=== PATIENT | female | born 1990 | race Two or more races ===

== ENCOUNTER 2017-10-20 20:37 | Emergency (ER) | payer OTHER ==
[~2017-10-20] VITALS: Ht 160 cm; Wt 56.8 kg
[2017-10-20] MEDS ORDERED: ALBU8HFA IH (20:51)
[2017-10-20] MEDS ORDERED: ALBUTEROL SULFATE 2.5 MG/0.5 ML NEB SOLUTION NEB ONE (21:30)
[2017-10-20] MEDS ORDERED: ALBUTEROL SULFATE HFA 90 MCG/PUFF 8 GM INHALER IH ONE (21:30)
[2017-10-20] MEDS ORDERED: IPRATROPIUM BROMIDE 0.5 MG/2.5 ML NEB SOLUTION NEB ONE (21:30)
[2017-10-20] MEDS ORDERED: PredniSONE 20 MG TABLET PO ONE (21:30)
[2017-10-20 22:54] VITALS: BP 127/74
== END 2017-10-20 22:57 | disposition home or self-care (01) ==
LOC: EMS 20:38
DX: J45.901 Unspecified asthma with (acute) exacerbation (principal); Z87.891 Personal history of nicotine dependence
CPT/HCPCS: 81025; 94640; 99283; J7512; J7613; J3535

== ENCOUNTER 2017-12-31 22:51 | Emergency (ER) | payer MEDICAID, OTHER ==
[~2017-12-31] VITALS: Ht 160 cm; Wt 59.1 kg
[~2017-12-31 22:51] MED LIST: ALBU8HFA IH
[2017-12-31] MEDS ORDERED: ALBUTEROL SULFATE 2.5 MG/0.5 ML NEB SOLUTION NEB ONE (23:15)
[2017-12-31] MEDS ORDERED: 0.9% SODIUM CHLORIDE 5 ML NEB SOLUTION NEB ONE (23:19)
[2018-01-01] MEDS ORDERED: 0.9% SODIUM CHLORIDE 5 ML NEB SOLUTION NEB ONE (00:26)
[2018-01-01] MEDS ORDERED: IPRATROPIUM BROMIDE 0.5 MG/2.5 ML NEB SOLUTION NEB ONE (00:30)
[2018-01-01] MEDS ORDERED: PredniSONE 20 MG TABLET PO ONE ×2 (00:30→02:45)
[2018-01-01] MEDS ORDERED: ALBUTEROL SULFATE 5 MG/ML 20 ML NEB SOLN [BULK] NEB ONE (00:30)
[2018-01-01] MEDS ORDERED: AZITHROMYCIN 250 MG TABLET PO ONE (02:45)
[2018-01-01] MEDS ORDERED: ALBUTEROL SULFATE HFA 90 MCG/PUFF 8 GM INHALER IH ONE (02:45)
[2018-01-01 03:23] VITALS: BP 130/68
== END 2018-01-01 03:25 | disposition home or self-care (01) ==
LOC: EMS 22:52
DX: J18.9 Pneumonia, unspecified organism (principal); J45.901 Unspecified asthma with (acute) exacerbation; Z87.891 Personal history of nicotine dependence; Z90.49 Acquired absence of other specified parts of digestive tract; Z90.5 Acquired absence of kidney; Z79.899 Other long term (current) drug therapy
CPT/HCPCS: 71046; 81025; 94644; 99285; J7512; J7611; J7613; 94640; J3535

== ENCOUNTER 2018-03-31 00:24 | Emergency (ER) | payer MEDICAID ==
[~2018-03-31] VITALS: Ht 160 cm; Wt 56.8 kg
[2018-03-31] MEDS ORDERED: ADV500 IH (00:38)
[2018-03-31 01:13] LABS: INFLUENZA TYPE A NEGATIVE FOR TYPE A (NEGATIVE); INFLUENZA TYPE B NEGATIVE FOR TYPE B (NEGATIVE)
[2018-03-31] MEDS ORDERED: 0.9% SODIUM CHLORIDE 5 ML NEB SOLUTION NEB ONE (01:17)
[2018-03-31] MEDS: IPRATROPIUM BROMIDE 0.5 MG/2.5 ML NEB SOLUTION NEB ONE (01:20)
[2018-03-31] MEDS: ALBUTEROL SULFATE 5 MG/ML 20 ML NEB SOLN [BULK] NEB ONE (01:20)
[2018-03-31] MEDS: PredniSONE 20 MG TABLET PO ONE (02:04)
[2018-03-31 03:36] VITALS: BP 117/77
== END 2018-03-31 03:40 | disposition home or self-care (01) ==
LOC: EMS 00:25
DX: J18.9 Pneumonia, unspecified organism (principal); J45.901 Unspecified asthma with (acute) exacerbation; F17.210 Nicotine dependence, cigarettes, uncomplicated
CPT/HCPCS: 71045; 87804; 94644; 99285; J7512

== ENCOUNTER 2018-09-27 08:24 | Emergency (ER) | payer MEDICAID, OTHER ==
[~2018-09-27] VITALS: Ht 154.9 cm; Wt 43.9 kg
[2018-09-27] MEDS: ALBUTEROL SULFATE 2.5 MG/0.5 ML NEB SOLUTION NEB ONE ×2 (08:29→08:30)
[2018-09-27] MEDS: IPRATROPIUM BROMIDE 0.5 MG/2.5 ML NEB SOLUTION NEB ONE ×2 (08:29→08:30)
[2018-09-27] MEDS ORDERED: LEVALBUTEROL HCL 1.25 MG/0.5 ML NEB SOLUTION NEB ONE ×2 (08:35→08:45)
[2018-09-27] MEDS ORDERED: 0.9% SODIUM CHLORIDE 5 ML NEB SOLUTION NEB ONE (08:35)
[2018-09-27] MEDS ORDERED: LORazepam 2 MG/ML VIAL IVP ONE (08:45)
[2018-09-27] MEDS ORDERED: ONDANSETRON HCL 4 MG TABLET PO ONE ×2 (09:15)
[2018-09-27 09:27] VITALS: BP 124/58
[2018-09-27] MEDS ORDERED: LORazepam 2 MG/ML VIAL IM ONE (09:30)
== END 2018-09-27 09:30 | disposition left against medical advice (07) ==
LOC: EMS 08:27
DX: F41.9 Anxiety disorder, unspecified (principal); R06.02 Shortness of breath; J45.909 Unspecified asthma, uncomplicated; F17.210 Nicotine dependence, cigarettes, uncomplicated; F11.90 Opioid use, unspecified, uncomplicated; Z90.49 Acquired absence of other specified parts of digestive tract
CPT/HCPCS: 71045; 99285; Q0162

== ENCOUNTER 2018-09-27 10:22 | Emergency (ER) | payer MEDICAID, OTHER ==
[~2018-09-27] VITALS: Ht 154.9 cm; Wt 43.9 kg
[2018-09-27] MEDS ORDERED: DiphenhydrAMINE HCL 50 MG/ML VIAL ONE (10:43)
[2018-09-27] MEDS ORDERED: HALOPERIDOL LACTATE 5 MG/ML VIAL ONE (10:43)
[2018-09-27] MEDS ORDERED: DiphenhydrAMINE HCL 50 MG/ML VIAL IM ONE (10:45)
[2018-09-27] MEDS ORDERED: LORazepam 2 MG/ML VIAL IM ONE (10:45)
[2018-09-27] MEDS ORDERED: IPRATROPIUM BROMIDE 0.5 MG/2.5 ML NEB SOLUTION NEB ONE (11:15)
[2018-09-27] MEDS ORDERED: HALOPERIDOL LACTATE 5 MG/ML VIAL IM ONE (11:15)
[2018-09-27] MEDS ORDERED: MethylPREDNISolone SOD SUCC 125 MG/2 ML VIAL IVP ONE (11:15)
[2018-09-27] MEDS ORDERED: SODIUM CHLORIDE 0.9% 1,000 ML IV ONE ×2 (11:15→13:00)
[2018-09-27] MEDS ORDERED: ALBUTEROL SULFATE 2.5 MG/0.5 ML NEB SOLUTION NEB ONE (11:15)
[2018-09-27] MEDS: MIDAZOLAM HCL 5 MG/ML VIAL IM ONE ×2 (11:32→11:45)
[2018-09-27] MEDS ORDERED: LORazepam 2 MG/ML VIAL IVP ONE (11:45)
[2018-09-27 12:13] LABS: BASOPHILS % (AUTO) 0.4 % (0.0-2.0); EOSINOPHILS % (AUTO) 1.1 % (1.0-6.0); HEMATOCRIT 40.3 % (36-46); HEMOGLOBIN 13.6 g/dL (12.0-16.0); LYMPHOCYTES # (AUTO) 0.9 K/uL (1.0-4.8); LYMPHOCYTES % (AUTO) 10.7 % (22.0-44.0); MEAN CORPUSCULAR HGB CONC 33.6 G/dL (31.0-37.0); MEAN CORPUSCULAR VOLUME 92 fL (80-100); MONOCYTES # (AUTO) 0.8 K/uL (0.1-1.0); MONOCYTES % (AUTO) 9.3 % (2.0-9.0); NEUTROPHILS # (AUTO) 6.9 K/uL (1.8-7.7); NEUTROPHILS % (AUTO) 78.5 % (40.0-70.0); PLATELET COUNT (AUTO) 156 K/uL (150-450); RED BLOOD CELL COUNT(AUTO) 4.37 MIL/uL (4.00-5.20); RED CELL DISTRIBUTION WIDTH 13.4 % (11.5-14.5)
[2018-09-27 12:32] LABS: SALICYLATE 1.2 mg/dL (2.8-20.0)
[2018-09-27 12:35] LABS: ANION GAP 13 mmol/L (8-16); CALCIUM, TOTAL 9.4 mg/dL (8.8-10.5); CARBON DIOXIDE 24 mmol/L (22-29); CHLORIDE 106 mmol/L (98-107); CREATININE 1.04 mg/dL (0.60-1.30); GLOMERULAR FILTR. RATE CALC > 60 mL/min (>60); GLUCOSE,RANDOM 90 mg/dL (70-110); SODIUM SERUM 143 mmol/L (136-145); UREA NITROGEN, BLOOD 9 mg/dL (7-18)
[2018-09-27 12:39] LABS: ALANINE AMINOTRANSFERASE 31 U/L (12-78); ALBUMIN 3.4 g/dL (3.4-5.0); ALKALINE PHOSPHATASE 60 U/L (46-116); ASPARTATE AMINOTRANSFERASE 28 U/L (15-37); BILIRUBIN,TOTAL 0.7 mg/dL (0.1-1.0); TOTAL PROTEIN, SERUM 7.1 g/dL (6.4-8.2)
[2018-09-27] MEDS ORDERED: 0.9% SODIUM CHLORIDE 5 ML NEB SOLUTION NEB ONE (12:53)
[2018-09-27 12:56] LABS: HCG,QUANTITATIVE < 1 mIU/mL (0-6)
[2018-09-27 12:58] LABS: ACETAMINOPHEN < 2 mcg/mL (10-30)
[2018-09-27 14:24] LABS: AMPHET/METH SCREEN,URINE POSITIVE (NEGATIVE); BARBITURATE SCREEN, URINE NEGATIVE (NEGATIVE); BENZODIAZEPINES SCREEN,URINE NEGATIVE (NEGATIVE); CANNABINOID SCREEN,URINE NEGATIVE (NEGATIVE); COCAINE SCREEN,URINE NEGATIVE (NEGATIVE); METHADONE SCREEN, URINE NEGATIVE (NEGATIVE); OPIATE SCREEN,URINE POSITIVE (NEGATIVE)
[2018-09-27 14:26] LABS: PHENCYCLIDINE SCREEN,URINE NEGATIVE (NEGATIVE)
[2018-09-27 21:36] VITALS: BP 84/50
== END 2018-09-27 23:45 | disposition home or self-care (01) ==
LOC: EMS 10:24
DX: R41.82 Altered mental status, unspecified (principal); F11.10 Opioid abuse, uncomplicated; J45.909 Unspecified asthma, uncomplicated; F17.210 Nicotine dependence, cigarettes, uncomplicated; Z79.899 Other long term (current) drug therapy
CPT/HCPCS: 36415; 70450; 80053; 80307; 84702; 85025; 96361; 96372; 96374; 96375; 99291; G0480 ×2; G0481; J1200; J1630; J2060; J2250; J2930; J7030